=== PATIENT | female | born 1980 | race Caucasian/White ===

== ENCOUNTER 2023-04-12 16:25 | Emergency (ER) | payer BC, SELFPAY ==
[2023-04-12 16:31] VITALS: BP 153/95; PULSE 80; RESP 16; TEMP 36.7; O2SAT 98; BMI 34.9
--- NOTE | 2023-04-12 16:43 | XRR_ITS ---
PROCEDURE INFORMATION: Exam: XR Chest Exam date and time: 04/12/2023 4:57 PM Age: 42 years old Clinical indication: Pain; Chest pressure; Additional info: Chest pain TECHNIQUE: Imaging protocol: Radiologic exam of the chest. Views: 1 view. COMPARISON: No relevant prior studies available. FINDINGS: Lungs: Unremarkable. No consolidation. Pleural spaces: Unremarkable. No pleural effusion. No pneumothorax. Heart/Mediastinum: Unremarkable. No cardiomegaly. Bones/joints: Unremarkable. XR/XR chest 1V portable [id number] IMPRESSION: No acute findings.
--- NOTE | 2023-04-12 16:44 | ECG_ITS ---
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 Measurements Intervals [place] Rate: 72 P: 31 [place]: 170 QRS: 46 QRSD: 84 T: 40 QT: 368 QTc: 403 Interpretive Statements SINUS RHYTHM No previous ECG available for comparison Electronically Signed On 04-13-2023 7:36:41 CDT by Braulio Cross M.D. [email or web address].[employer]/store/NU/[id number] f
[2023-04-12 17:01] LABS: Basophils % 0.4 %; Eosinophils # 0.4 10^3/uL (0.0-0.8); Eosinophils % 4.9 %; Hematocrit 40.6 % (37.0-47.0); Hemoglobin 13.1 g/dL (11.5-15.3); Lymphocytes # 1.8 10^3/uL (0.8-4.8); Lymphocytes % 25.6 %; Mean Corpuscular HGB Conc 32.3 g/dL (30.0-36.0); Mean Corpuscular Hemoglobin 29.4 pg (28.0-34.0); Mean Platelet Volume 11.2 fL (7.4-10.4); Monocytes # 0.4 10^3/uL (0.2-0.9); Monocytes % 6.1 %; Neutrophils # 4.44 10^3/uL (1.8-7.7); Neutrophils % 62.7 %; Nucleated Red Blood Cells % 0 %; Platelet Count 197 10^3/cmm (130-400); Red Blood Count 4.46 10^6/uL (4.1-5.3); White Blood Count 7.1 10^3/uL (4.0-10.0)
[2023-04-12 17:14] LABS: INR 0.97 (0.8-1.2)
[2023-04-12 17:24] VITALS: BP 154/99; PULSE 77; RESP 18; O2SAT 99
--- NOTE | 2023-04-12 17:24 | PC.NURSE ---
Patient hooked up to continuous bedside cardiac monitoring.
[2023-04-12 17:25] LABS: Alanine Aminotransferase 35 U/L (0-33); Albumin Level 4.3 g/dL (3.5-5.2); Alkaline Phosphatase 93 U/L (35-105); Anion Gap 13.9 (5-19); Aspartate Amino Transferase 22 U/L (0-32); Blood Urea Nitrogen 8 mg/dL (6-20); Calcium 9.1 mg/dL (8.5-10.5); Carbon Dioxide 25 mmol/L (22-29); Chloride 105 mmol/L (98-107); Globulin 2.2 g/dL (1.3-4.6); Glomerular Filtration Rate 109.6 mL/min (90-130); Glucose 82 mg/dL (65-115); Osmolality Calculated 287 mOsm/kg (285-295); Potassium 3.9 mmol/L (3.5-5.1); Sodium 140 mmol/L (136-145); Total Bilirubin 0.3 mg/dL (0.15-1.2); Total Protein 6.5 g/dL (6.6-8.7)
[2023-04-12 17:26] LABS: Troponin(5th) Baseline 6 ng/L (0-10)
--- NOTE | 2023-04-12 17:59 | W.ED.CHESTPA ---
HPI - Chest Pain General: Chief Complaint: Chest Pain Stated Complaint: upper back pain Time Seen by Provider: 04/12/23 16:43 History of Present Illness: Presents to the ER with complaints of substernal chest pain off and on since Sunday and also left scapular pain intermittent. Patient's other complaint is that she just feels off in general feels like she has a head mallory additional go away. Patient does not have any cardiac history herself. Upon arrival patient's blood pressure mildly elevated 153/95. Patient states she is not having the chest pain right now per se but she is having the left scapular pain. Patient did figure out that moving in certain positions will make the pain go away. And pushing on her chest makes the pain worse. Review of Systems General: Reports: 10 or more systems reviewed and unremarkable except in HPI and below Physical Exam Const: COMMON NORMALS: no acute distress, average body habitus, patient oriented x3, no limitations, healthy appearing, alert and well nourished HENMT: COMMON NORMALS: normocephalic, atraumatic, hearing grossly normal bilaterally, external ears normal, Normal external nose present and moist oral mucous membranes HEAD & SCALP: normocephalic and atraumatic NOSE: Normal external nose present EXTERNAL EAR: Yes external ears normal Eye: COMMON NORMALS: Equal, round and reactive pupils present, EOMs intact bilaterally, conjunctivae normal and no scleral icterus CONJUNCTIVA: Yes conjunctivae normal PUPIL: Yes Equal, round and reactive pupils present Neck/C-Spine: COMMON NORMALS: full ROM, no lymphadenopathy, supple, no meningeal signs, no JVD and Thyroid normal THYROID: Thyroid normal Chest: COMMONS NORMALS: normal inspection of the chest and normal palpation of entire chest wall Resp: COMMON NORMALS: normal respiratory effort, No retractions, No use of accessory muscles and clear to auscultation bilaterally AUSCULTATION: clear to auscultation bilaterally Cardio: COMMON NORMALS: no JVD, regular rate, regular rhythm, S1 normal heart sound present, S2 normal heart sound present, No gallops present (Cardio), No clicks present (Cardio), No murmurs present (Cardio) and No rub (Cardio) RATE: regular rate RHYTHM: regular rhythm HEART SOUNDS: S1 normal heart sound present and S2 normal heart sound present GI: COMMON NORMALS: Normal to inspection, nondistended, normoactive bowel sounds present, Soft to palpation, non-tender, No hepatosplenomegaly present and no masses PALPATION: Yes Soft to palpation and Yes No hepatosplenomegaly present : COMMON NORMALS: Yes no CVA tenderness BLADDER/KIDNEY EXAM: Yes no CVA tenderness Back/Pelvis: COMMON NORMALS: no CVA tenderness Neuro: COMMON NORMALS: patient oriented x3 SENSORIUM/ORIENTATION: Yes alert MENINGEAL SIGNS: Yes no meningeal signs Course Vital Signs: Vital signs: Vital Signs Temperature 98.1 F 04/12/23 16:31 Pulse Rate 63 04/12/23 18:38 Respiratory Rate 18 04/12/23 18:38 Blood Pressure 146/89 04/12/23 18:38 Pulse Oximetry 99 04/12/23 18:38 Oxygen Delivery Me thod Room Air 04/12/23 18:38 MDM - Chest Pain Medical Decision Making Presents to the ER with intermittent back pain and chest pain over the last 2 days. Patient was worked up in a normal chest pain fashion. Along with physical exam serial EKGs and serial troponins all of which come back benign. Is felt that this is noncardiac in nature. Patient be discharged home to follow-up with her PCP in the next 7 to 10 days. Differential Diagnosis Unlikely acute massive pulmonary embolism, acute respiratory failure, acute myocardial infarction, cardiac arrest or sudden cardiac Medical Records I reviewed the patient's medical records. Lab Data I reviewed the patient's lab results. 04/12/23 16:54 04/12/23 16:54 Radiology Impressions Chest X-Ray 04/12/23 16:43 IMPRESSION: No acute findings. Laboratory Results WBC 7.1 10^3/uL (4.0-10.0) 04/12/23 16:54 RBC 4.46 10^6/uL (4.1-5.3) 04/12/23 16:54 Hgb 13.1 g/dL (11.5-15.3) 04/12/23 16:54 Hct 40.6 % (37.0-47.0) 04/12/23 16:54 MCV 91.0 fl (81-99) 04/12/23 16:54 MCH 29.4 pg (28.0-34.0) 04/12/23 16:54 MCHC 32.3 g/dL (30.0-36.0) 04/12/23 16:54 RDW 13.0 % (12.1-15.1) 04/12/23 16:54 Plt Count 197 10^3/cmm (130-400) 04/12/23 16:54 MPV 11.2 fL (7.4-10.4) H 04/12/23 16:54 Neut % (Auto) 62.7 % 04/12/23 16:54 Lymph % (Auto) 25.6 % 04/12/23 16:54 [place] % (Auto) 6.1 % 04/12/23 16:54 Eos % (Auto) 4.9 % 04/12/23 16:54 Baso % (Auto) 0.4 % 04/12/23 16:54 Neut # (Auto) 4.44 10^3/uL (1.8-7.7) 04/12/23 16:54 Lymph # (Auto) 1.8 10^3/uL (0.8-4.8) 04/12/23 16:54 [place] # (Auto) 0.4 10^3/uL (0.2-0.9) 04/12/23 16:54 Eos # (Auto) 0.4 10^3/uL (0.0-0.8) 04/12/23 16:54 Baso # (Auto) 0.0 10^3/uL (0.0-0.1) 04/12/23 16:54 Nucleated RBC % (auto) 0 % 04/12/23 16:54 Nucleated RBCs # 0.0 /100WBC 04/12/23 16:54 PT 13.20 SECONDS (12.1-14.9) 04/12/23 16:54 INR 0.97 (0.8-1.2) 04/12/23 16:54 Sodium 140 mmol/L (136-145) 04/12/23 16:54 Potassium 3.9 mmol/L (3.5-5.1) 04/12/23 16:54 Chloride 105 mmol/L (98-107) 04/12/23 16:54 Carbon Dioxide 25 mmol/L (22-29) 04/12/23 16:54 Anion Gap 13.9 (5-19) 04/12/23 16:54 BUN 8 mg/dL (6-20) 04/12/23 16:54 Creatinine 0.6 mg/dL (0.5-0.9) 04/12/23 16:54 GFR Calculation 109.6 mL/min (90-130) 04/12/23 16:54 Glucose 82 mg/dL (65-115) 04/12/23 16:54 Calculated Osmolality 287 mOsm/kg (285-295) 04/12/23 16:54 Calcium 9.1 mg/dL (8.5-10.5) 04/12/23 16:54 Total Bilirubin 0.3 mg/dL (0.15-1.2) 04/12/23 16:54 AST 22 U/L (0-32) 04/12/23 16:54 ALT 35 U/L (0-33) H 04/12/23 16:54 Alkaline Phosphatase 93 U/L (35-105) 04/12/23 16:54 Troponin T Baseline 6 ng/L (0-10) 04/12/23 16:54 Troponin T 120 Minute 6.00 ng/L (0-10) 04/12/23 19:12 Total Protein 6.5 g/dL (6.6-8.7) L 04/12/23 16:54 Albumin 4.3 g/dL (3.5-5.2) 04/12/23 16:54 Globulin 2.2 g/dL (1.3-4.6) 04/12/23 16:54 EKG Data EKG 1: I personally reviewed and interpreted this EKG as follows: EKG interpretation date: 04/12/23 EKG interpretation time: 16:40 Prior EKG tracings: not available for review Interpretation: EKG showed normal sinus rhythm with a ventricular rate of 72 bpm, MN interval 170, QRS duration 84, QTc of 392, no ST-T wave changes EKG 2: I personally reviewed and interpreted this EKG as follows: EKG interpretation date: 04/12/23 EKG interpretation time: 18:54 Prior EKG tracings: available for review Interpretation: EKG showed ventricular rate 65 bpm, MN interval 189, QRS duration 94, QTc of 391, sinus rhythm with no ST-T wave changes Discharge Plan Discharge Patient Disposition: Home Clinical Impression: Atypical chest pain Condition: Stable Prescriptions: No Action No Known Home Medications Discharge Orders: Discharge ED (Routine); Ordered 04/12/23 Ordered By: Kenyon Tracy Patient Instructions: Chest Pain - Noncardiac Activity Restrictions/Additional Instructions: All of your work-up was negative for cardiac type chest pain. This is felt to be noncardiac in nature. Please follow-up with your family practice doctor in the next 7 to 10 days or sooner as needed. Coding Level of Care Code ED Reproduction Machine Loader for Gaston Spencer
[2023-04-12 18:38] VITALS: BP 146/89; PULSE 63; RESP 18; O2SAT 99
--- NOTE | 2023-04-12 18:44 | ECG_ITS ---
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 Measurements Intervals [place] Rate: 65 P: 51 [place]: 189 QRS: 45 QRSD: 94 T: 35 QT: 380 QTc: 395 Interpretive Statements SINUS RHYTHM LOW QRS VOLTAGE IN PRECORDIAL LEADS [QRS DEFLECTION < 1.0 mV IN CHEST LEADS] No previous ECG available for comparison Electronically Signed On 04-12-2023 18:56:43 CDT by Braulio Cross M.D. [id number]
[2023-04-12 19:00] VITALS: BP 140/86; PULSE 60; O2SAT 97
[2023-04-12 20:00] VITALS: BP 134/99; PULSE 68; O2SAT 97
[2023-04-12 20:13] LABS: Troponin 5 2HR Delta 0 ABS# (0-10)
--- NOTE | 2023-04-13 11:50 | DCPLANNER ---
network account manager called patient due to no primary care physician - patient declines at this time, she stated that she would schedule an appointment with a provider.
== END 2023-04-12 20:36 | disposition home or self-care (01) ==
PROVIDERS: Emergency Provider Emergency Medicine
DX: R07.89 Other chest pain (principal)
CPT/HCPCS: 36415; 71045; 80053; 84484; 85025; 85610; 93005; 99285

== ENCOUNTER 2023-06-06 09:42 | Outpatient (CLI) | payer BC, SELFPAY ==
--- NOTE | 2023-06-06 | ECG_ITS ---
[facility] Test Date: 2023-06-06 Pat Name: Siena Beckwith Department: Room: Gender: Female Qa Analyst: Royal Pastor : 1980 Requested By: Braulio Cross Order Number: [id number] Courtney MD: Braulio Cross M.D. Interpretive Statements NAME OF STUDY: EXERCISE SESTAMIBI STRESS TEST INDICATION: [Chest Pain, ] EXERCISE DATA: The patient was exercised by Adonis protocol. Baseline heart rate was 68 beats per minute. Baseline blood pressure was 115/57 millimeters of mercury. Target heart rate was 150 beats per minute. Maximum heart rate achieved was 173 which was 115% of the target heart rate. Maximum blood pressure was 160/92 millimeters of mercury. Total exercise time was 7 minutes. Maximum METs achieved was 10.2. The reason for ending the test was maximal effort achieved. The patient complained of shortness of breath during the stress test, which then resolved at the end of the test. ELECTROCARDIOGRAM: BASELINE: Showed sinus rhythm, normal axis, no significant ST-T changes at the baseline noted. [] EXERCISE: At the peak exercise level, [] No significant ST-T changes suggestive of ischemia noted. [] RECOVERY: During the recovery period, heart rate dropped appropriately. No significant ST-T changes in the recovery suggestive of ischemia noted. [] CONCLUSION: 1. Exercise capacity is good 2. Heart rate response was appropriate. 3. Blood pressure response was appropriate 4. Symptoms not suggestive of ischemia. 5. Electrocardiogram portion of the stress test was not suggestive of ischemia. 6. Nuclear scan will be documented separately. Electronically Signed On 06-21-2023 12:04:56 CDT by Braulio Cross M.D. [id number]
--- NOTE | 2023-06-06 10:04 | NMCV_ITS ---
NM luisito perf SPECT r/s* [id number] Siena Beckwith Age: 43 Gender: F : 1980 Exam Date: 06/06/2023 10:40 Ordering Phys: Braulio Cross M.D ([email or web address]) Technologist: MICHELLE Fam Exam Location: [facility] Indications: CHEST PAIN STRESS TEST Please [facility] IMAGE PROTOCOL Rest/Stress 1 Exercise Day Radiopharmaceutical Dose (mCi) Administration Site Administered by Rest: Tc-99m 10.9 IV MICHELLE Fam Sestamibi Stress:Tc-99m 32.8 IV MICHELLE Solis Sestamibi Rest: 06-Jun-2023 60 Discovery 630 Stress: 06-Jun-2023 30 Discovery 630 Radiopharmaceutical was injected at 87 % maximum heart rate. Images obtained in supine and prone position. SPECT RESULTS Technical Quality: Excellent Raw Data Analysis: Normal Image Corrections: No attenuation or motion correction applied Summed Stress Score: 0 Summed Rest Score: 0 Summed Difference Score: 0 PERFUSION FINDINGS SPECT images demonstrate homogeneous tracer distribution throughout the myocardium. FUNCTIONAL RESULTS (calculated via Gated SPECT) Stress Image LV EF (%): 84 Stress EDV (mL):83 TID: 0.75 Stress ESV (mL):13 FUNCTIONAL FINDINGS: There is normal left ventricular systolic function. IMPRESSIONS 1. Normal myocardial perfusion imaging with no evidence of ischemia 2. LV systolic function is normal Braulio Cross MD (Electronically Signed) Final Date: 06 June 2023 12:34 S
[2023-06-06 10:06] VITALS: BMI 38.0
[2023-06-06 12:13] VITALS: BP 130/100; PULSE 84
== END 2023-06-06 09:43 | disposition home or self-care (01) ==
LOC: CDL 09:43
PROVIDERS: PCP Nurse Practitioner Family; Visit Provider Internal Medicine
DX: R07.9 Chest pain, unspecified (principal)
CPT/HCPCS: 36415; 78452; 93017; A9500

== ENCOUNTER 2023-06-27 12:02 | Outpatient (CLI) | payer BC, SELFPAY ==
--- NOTE | 2023-06-27 11:45 | USCV_ITS ---
Siena Beckwith Age: 43 Gender: F : 1980 Exam Date: 06/27/2023 12:13 Ordering Phys: Braulio Cross M.D ([email or web address]) Technologist: CT Exam Location: [facility] [place] Indication: sob BP: 112 / 78 HR: 66 Rhythm: Sinus Technical Quality: Adequate MEASUREMENTS (Male / Female) Normal Values 2D ECHO LV Chamber Size 4.5 cm RV Chamber Size 4.1 cm LVOT Diameter 2.0 cm LV Ejection Fraction MOD 2C 72.7 % LV Ejection Fraction 2C AL 71.0 % LA Diameter 3.7 cm LA Width 3.5 cm LA Height 5.9 cm RA Width 3.4 cm RA Height 5.0 cm Aorta at Sinotubular Diameter 2.4 cm IVC Diameter 1.7 cm M-MODE Aortic Annulus Diameter 3.2 cm LA Ao Ratio MM 1.3 MV E Point Septal Separation 0.6 cm DOPPLER AV Peak Velocity 151.0 cm/s LVOT Peak Velocity 83.0 cm/s AV Area Cont Eq vti 1.8 cm squared AV Area Cont Eq pk 1.8 cm squared MV E' Velocity 13.0 cm/s TR Peak Velocity 156.0 cm/s TR Peak Gradient 9.7 mmHg TV Peak E Velocity 84.0 cm/s Right Atrial Pressure 3.0 mmHg Pulmonary Artery Systolic Pressu 12.7 mmHg PV Peak Velocity 121.0 cm/s FINDINGS Left Ventricle Left ventricle is normal size. LV systolic function is normal with EF of 55 to 60%. No regional wall motion abnormalities are seen. Right Ventricle Normal in size and function Right Atrium Normal in size Left Atrium Normal in size Mitral Valve Structurally normal mitral valve. Trace mitral regurgitation. Aortic Valve Structurally normal aortic valve. No significant stenosis or regurgitation. Tricuspid Valve Mild tricuspid regurgitation. Insufficient TR jet to evaluate RVSP. Pulmonic Valve Not well visualized Pericardium Normal Aorta Normal in size IVC Appears to be normal CONCLUSIONS LV systolic function is normal with EF of 55 to 60%. No regional wall motion abnormalities are seen. Trace mitral regurgitation Mild tricuspid regurgitation No comparison studies are available Braulio Cross MD (Electronically Signed) Final Date: 30 June 2023 10:16 S
== END 2023-06-27 12:03 | disposition home or self-care (01) ==
LOC: RAD 12:03
PROVIDERS: PCP Nurse Practitioner Family; Visit Provider Internal Medicine
DX: R06.02 Shortness of breath (principal); I07.1 Rheumatic tricuspid insufficiency
CPT/HCPCS: 93306

== ENCOUNTER → 2023-10-26 09:49 | Outpatient (BNVA) | payer MEDICAID, SELFPAY | PROVIDERS: PCP Nurse Practitioner Family; Visit Provider Family Medicine | DX: M19.011 Primary osteoarthritis, right shoulder (principal); M25.511 Pain in right shoulder; G89.29 Other chronic pain | CPT/HCPCS: 73030 ==

== ENCOUNTER → 2024-04-24 09:58 | Outpatient (BNVA) | payer MEDICAID, SELFPAY | PROVIDERS: PCP Nurse Practitioner Family; Visit Provider Nurse Practitioner Family | DX: R07.9 Chest pain, unspecified (principal); R20.2 Paresthesia of skin; E66.9 Obesity, unspecified | CPT/HCPCS: 80053; 80061; 83036; 84443; 85025 ==

== ENCOUNTER 2024-07-28 09:44 | Emergency (ER) | payer MEDICAID, SELFPAY ==
--- NOTE | 2024-07-28 09:53 | W.ED.ALLEREA ---
HPI - Allergic Reaction General: Chief complaint: Allergic Reaction Stated complaint: allergic reaction Time Seen by Provider: 07/28/24 09:47 History of Present Illness: HPI narrative: 44-year-old female presents emergency room with onset of urticarial rash that began suddenly this morning. Briefly she felt like she was having a difficult time taking a deep breath he used albuterol inhaler once and that seems to have passed. She has a diffusely spread urticarial rash on the trunk upper extremities and proximal lower extremities. Knee extends beyond the extent of her closing. She did not have any hoarseness difficulty breathing or swallowing no facial swelling. Associated symptoms: Deny abdominal pain Related Data Previous Rx's Medication Instructions Recorded albuterol sulfate 90 mcg/actuation 2 puff inhalation 6XD PRN 04/24/24 aerosol inhaler (Ventolin HFA) shortness of breath or wheezing 30 days #8.5 grams mometasone 220 mcg/actuation(120 2 inh inhalation BID #1 ea 04/24/24 doses)breath activated powder inhaler (Asmanex Twisthaler) montelukast 10 mg tablet 10 mg PO DAILY 90 days #90 tabs 04/24/24 terbinafine HCl 250 mg tablet 250 mg PO DAILY 30 days #30 tabs 04/24/24 cetirizine 10 mg tablet 10 mg PO BID #60 tabs 07/28/24 methylprednisolone 4 mg tablets in See Rx Instructions PO .COMPLEX 07/28/24 a dose pack (Medrol (Christiano)) #21 ea Allergies Allergy/AdvReac Type Severity Reaction Status Date / Time No Known Allergies Allergy Verified 07/31/24 11:34 Review of Systems Const: Denies: fever(s) or chills Card: Denies: chest pain Resp: Denies: dyspnea GI: Denies: abdominal pain : Denies: dysuria, urinary frequency or urinary urgency Musc: Denies: neck pain or back pain Skin/Breast: Reports: rash (Urticarial rash) and pruritus PFSH ED PFSH: Social History Smoking and tobacco/nicotine status: tobacco/nicotine user, details unknown (marijuana) Physical Exam Const: COMMON NORMALS: no acute distress GENERAL APPEARANCE: cooperative and comfortable ORIENTATION/CONSCIOUSNESS: Yes awake, Yes oriented to person, Yes oriented to place and Yes oriented to time HENMT: COMMON NORMALS: normocephalic, atraumatic and hearing grossly normal bilaterally HEAD & SCALP: normocephalic and atraumatic Resp: COMMON NORMALS: normal respiratory effort, No retractions, No use of accessory muscles and clear to auscultation bilaterally AUSCULTATION: clear to auscultation bilaterally Cardio: COMMON NORMALS: regular rate, regular rhythm and No murmurs present (Cardio) RATE: regular rate RHYTHM: regular rhythm GI: COMMON NORMALS: Soft to palpation and No hepatosplenomegaly present AUSCULTATION: Yes normoactive bowel sounds PALPATION: Yes Soft to palpation, No Tenderness to palpation present (GI), No Guarding due to palpation present (GI) and Yes No hepatosplenomegaly present Extremity: COMMON NORMALS: normal to inspection, capillary refill normal, no clubbing, cyanosis or edema, no calf tenderness and no pedal edema Neuro: SENSORIUM/ORIENTATION: Yes oriented to person, Yes oriented to place and Yes oriented to time Skin: OTHER: Diffuse urticarial rash on the trunk upper extremities and proximal lower extremities no vesicles Course Vital Signs: Vital signs: Vital Signs Temperature 97.9 F 07/28/24 09:57 Pulse Rate 69 07/28/24 12:13 Respiratory Rate 18 07/28/24 09:57 Blood Pressure 119/69 07/28/24 12:13 Pulse Oximetry 94 07/28/24 12:13 Oxygen Delivery Me thod Room Air 07/28/24 10:51 MDM - Allergic Reaction Medical Decision Making Patient given steroids and antihistamines rashes began to resolve. No further respiratory issues than what she had described prior to arrival. Will discharge patient home steroid taper cetirizine 1 tablet twice daily albuterol as needed continue her montelukast. Follow-up with primary care if persist advised patient is likely this will wax and wane the next several days No radiology studies performed this visit Discharge Plan Discharge Patient Disposition: Home Clinical Impression: Allergic reaction, Urticaria Condition: Stable Prescriptions: New methylprednisolone [Medrol (Christiano)] 4 mg tablets,dose pack See Rx Instructions .ROUTE .COMPLEX Qty: 21 0RF Rx Instructions: orally per package directions cetirizine 10 mg tablet 10 mg PO BID Qty: 60 0RF No Action albuterol sulfate [Ventolin HFA] 90 mcg/actuation HFA aerosol inhaler 2 puff inhalation 6XD PRN (Reason: shortness of breath or wheezing) 30 Days Qty: 8.5 11RF Asmanex Twisthaler 220 mcg/ actuation (120) aerosol powdr breath activated 2 inh inhalation BID Qty: 1 11RF montelukast 10 mg tablet 10 mg PO DAILY 90 Days Qty: 90 1RF terbinafine HCl 250 mg tablet 250 mg PO DAILY 30 Days Qty: 30 2RF Discharge Orders: Discharge ED (Routine); Ordered 07/28/24 Ordered By: Skinny Rojas Referrals: Kelley Fuentes NP [Primary Care Provider] - Discharge Diet: Usual diet Discharge Activity: Increase activity as tolerated Patient Instructions: Urticaria (ED), Opioid Safety, Pain Management Activity Restrictions/Additional Instructions: Thank you for choosing [facility] for your healthcare needs today. It is very important that you follow up as instructed or that you return to the Emergency Department should you have concerns or if your condition changes or worsens in any way. Use Benadryl and cetirizine as needed to treat hives. Coding Level of Care Code ED Security Assurance Specialist for Gaston Spencer
[2024-07-28 09:57] VITALS: BP 120/96; PULSE 88; RESP 18; TEMP 36.6; O2SAT 96; BMI 36.5
[2024-07-28] MEDS: diphenhydrAMINE 50 mg/mL SDV 1mL IVP (10:18)
[2024-07-28] MEDS: methylPREDNISolone sod succ 125 mg/2 mL INJ IVP (10:29)
[2024-07-28 10:51] VITALS: BP 131/79; O2SAT 97
[2024-07-28 12:13] VITALS: BP 119/69; PULSE 69; O2SAT 94
== END 2024-07-28 12:14 | disposition home or self-care (01) ==
PROVIDERS: Emergency Provider Family Medicine; PCP Nurse Practitioner Family
DX: L50.0 Allergic urticaria (principal); Z72.0 Tobacco use
CPT/HCPCS: 96374; 96375; 99284; J1200; J2919

== ENCOUNTER → 2024-07-31 13:19 | Outpatient (BNVA) | payer MEDICAID, SELFPAY | PROVIDERS: PCP Nurse Practitioner Family; Visit Provider Nurse Practitioner Family | DX: T78.40XA Allergy, unspecified, initial encounter (principal) | CPT/HCPCS: 80053; 85025; 86003; 86008; 86618; 86666; 86757 ==

== ENCOUNTER → 2024-10-21 15:30 | Outpatient (BNVA) | payer OTHER, SELFPAY | PROVIDERS: PCP Nurse Practitioner Family; Visit Provider Podiatrist Foot & Ankle Surgery | DX: M79.671 Pain in right foot (principal); M79.672 Pain in left foot | CPT/HCPCS: 73630 ==

== ENCOUNTER → 2024-11-06 11:01 | Outpatient (BNVA) | payer OTHER, SELFPAY | PROVIDERS: PCP Nurse Practitioner Family; Visit Provider Clinical Nurse Specialist Adult Health | DX: K21.9 Gastro-esophageal reflux disease without esophagitis (principal); M19.90 Unspecified osteoarthritis, unspecified site; J45.41 Moderate persistent asthma with (acute) exacerbation; T78.40XA Allergy, unspecified, initial encounter; E66.9 Obesity, unspecified; X58.XXXA Exposure to other specified factors, initial encounter | CPT/HCPCS: 80053; 80061; 83036; 84443; 85007; 85027 ==

== ENCOUNTER 2024-11-14 15:14 | Outpatient (CLI) | payer OTHER, SELFPAY ==
--- NOTE | 2024-11-14 15:21 | XRR_ITS ---
PROCEDURE INFORMATION: Exam: XR Left Shoulder Exam date and time: 11/14/2024 3:37 PM Age: 44 years old Clinical indication: Pain; Shoulder; Left; Additional info: M25.512 - pain in left shoulder TECHNIQUE: Imaging protocol: Radiologic exam of the left shoulder. Views: 2 or more views. COMPARISON: CR XR chest 1V portable [id number] 04/12/2023 4:57 PM FINDINGS: Bones/joints: Normal. No fracture or dislocation. No acute osseous, joint, or soft tissue abnormality. Soft tissues: Normal. XR/XR shoulder LT min 2V* [id number] IMPRESSION: No acute findings.
== END 2024-11-14 15:15 | disposition home or self-care (01) ==
LOC: RAD 15:16
PROVIDERS: PCP Clinical Nurse Specialist Adult Health; Visit Provider Clinical Nurse Specialist Adult Health
DX: M25.512 Pain in left shoulder (principal); G89.29 Other chronic pain
CPT/HCPCS: 73030

== ENCOUNTER 2024-11-25 06:30 | Outpatient (RCR) | payer OTHER, SELFPAY | END 2024-12-24 23:59 | disposition home or self-care (01) | LOC: TPT 06:30 | PROVIDERS: PCP Clinical Nurse Specialist Adult Health; Visit Provider Clinical Nurse Specialist Adult Health | DX: M25.512 Pain in left shoulder (principal) | CPT/HCPCS: 97110 ==

== ENCOUNTER 2024-11-25 10:45 | Outpatient (CLI) | payer OTHER, SELFPAY ==
--- NOTE | 2024-11-25 10:45 | MM_ITS ---
WS: [id number] DIAGNOSTIC BILATERAL DIGITAL BREAST TOMOSYNTHESIS MAMMOGRAPHY WITH CAD RIGHT breast ultrasound, limited HISTORY: N60.01 - Solitary cyst of right breast, pain RIGHT upper outer quadrant. COMPARISON: 12/12/2022, ultrasound 12/12/2022 TECHNIQUE: Bilateral craniocaudad, mediolateral oblique, and mediolateral views are submitted with tomosynthesis and SM. Spot compression RIGHT CC. Computer aided detection utilized. Breast composition: The breasts are heterogeneously dense, which may obscure small masses. Heterogeneous fibroglandular pattern. No areas of architectural distortion or suspicious grouping of calcifications. No mass in the upper outer quadrant of the RIGHT breast in the area of pain. RIGHT breast ultrasound, limited. Simple cyst RIGHT breast at 9:00, 5 cm from the nipple measures 3 x 2 x 4 mm. Dense fibroglandular tissue in the upper outer quadrant. There is an additional ovoid multicystic mass measuring 10 x 5 x 8 mm at 11:00 2 cm from the nipple. No increased vascularity. This is probably a cluster of cysts/fibrocystic breast disease. No area of shadowing or mass. MM/MM diag BI tomosynthesis [id number] IMPRESSION: BI-RADS: 2 - Benign FOLLOW UP: 1 Year Follow-up No suspicious masses within either breast. Stable small cluster of cysts in the RIGHT breast at 11:00. Described at 12:00 on the prior ultrasound but appears to be the same mass.
--- NOTE | 2024-11-25 11:02 | US_ITS ---
WS: [id number] DIAGNOSTIC BILATERAL DIGITAL BREAST TOMOSYNTHESIS MAMMOGRAPHY WITH CAD RIGHT breast ultrasound, limited HISTORY: N60.01 - Solitary cyst of right breast, pain RIGHT upper outer quadrant. COMPARISON: 12/12/2022, ultrasound 12/12/2022 TECHNIQUE: Bilateral craniocaudad, mediolateral oblique, and mediolateral views are submitted with tomosynthesis and SM. Spot compression RIGHT CC. Computer aided detection utilized. Breast composition: The breasts are heterogeneously dense, which may obscure small masses. Heterogeneous fibroglandular pattern. No areas of architectural distortion or suspicious grouping of calcifications. No mass in the upper outer quadrant of the RIGHT breast in the area of pain. RIGHT breast ultrasound, limited. Simple cyst RIGHT breast at 9:00, 5 cm from the nipple measures 3 x 2 x 4 mm. Dense fibroglandular tissue in the upper outer quadrant. There is an additional ovoid multicystic mass measuring 10 x 5 x 8 mm at 11:00 2 cm from the nipple. No increased vascularity. This is probably a cluster of cysts/fibrocystic breast disease. No area of shadowing or mass. US/US breast RT limited* [id number] IMPRESSION: BI-RADS: 2 - Benign FOLLOW UP: 1 Year Follow-up No suspicious masses within either breast. Stable small cluster of cysts in the RIGHT breast at 11:00. Described at 12:00 on the prior ultrasound but appears to be the same mass.
== END 2024-11-25 10:46 | disposition home or self-care (01) ==
LOC: RAD 10:46
PROVIDERS: PCP Clinical Nurse Specialist Adult Health; Visit Provider Clinical Nurse Specialist Adult Health
DX: N60.01 Solitary cyst of right breast (principal); R92.333 Mammographic heterogeneous density, bilateral breasts; N63.11 Unspecified lump in the right breast, upper outer quadrant
CPT/HCPCS: 76642; 77062; G0279

== ENCOUNTER 2024-12-25 06:30 | Outpatient (RCR) | payer OTHER, SELFPAY | END 2024-12-30 12:38 | disposition home or self-care (01) | LOC: TPT 06:30 | PROVIDERS: PCP Clinical Nurse Specialist Adult Health; Visit Provider Clinical Nurse Specialist Adult Health | DX: M25.512 Pain in left shoulder (principal) | CPT/HCPCS: 97110 ==

== ENCOUNTER 2025-01-08 15:54 | Outpatient (CLI) | payer OTHER, SELFPAY ==
--- NOTE | 2025-01-08 16:00 | MR_ITS ---
WS: [id number] MRI RIGHT SHOULDER HISTORY: M25.511 - Pain in right shoulder, history of prior labral surgery x2. COMPARISON: Radiograph 10/26/2023 TECHNIQUE: Multiplanar sequences of the shoulder joint are submitted. Mild narrowing of the AC joint. Small amount of marrow edema in the acromion. Small amount of fluid in the subacromial bursa. 5 mm enthesopathy along the distal undersurface of the acromion contacting the distal myotendinous portion of the supraspinatus. There is contact and mild subacromial impingement. No os acromion. Biceps tendon within normal position. Lobulated cystic mass in the humeral head is most consistent with a subchondral cyst. Cyst measures 1.5 x 1.8 cm. Mild narrowing of the glenohumeral joint. There are subchondral cystic changes involving the glenoid and loss of cartilage. Smaller subchondral cyst at the rotator cuff attachment to the hu meral head. No rotator cuff muscle atrophy or edema. There is a very small bursal surface tear involving the distal supraspinatus directly superior to the humeral head. This is at the site of the subacromial impingement. The labrum appear to be intact. Very slight intermediate signal and change in contour of the labrum. This is probably due to labral repair. Most obvious changes are within the anterior and posterior labrum. MR/MR shoulder RT wo con* [id number] IMPRESSION: 1. Mild AC joint arthritis. 2. Mild subacromial impingement upon the myotendinous portion of the supraspin atus. 3. Bursal surface tear of the distal supraspinatus tendon at the level of the subacromial impingement. This is a small tear extending through less than 50% o f the tendon. 4. Intermediate signal with change in contour of the labrum, probably all post operative. No new tear identified. 5. Narrowing of the glenohumeral joint with subchondral cystic changes involvi ng the glenoid.
== END 2025-01-08 15:55 | disposition home or self-care (01) ==
PROVIDERS: PCP Clinical Nurse Specialist Adult Health; Visit Provider Clinical Nurse Specialist Adult Health
DX: M19.011 Primary osteoarthritis, right shoulder (principal); G89.29 Other chronic pain; M75.41 Impingement syndrome of right shoulder; M75.101 Unspecified rotator cuff tear or rupture of right shoulder, not specified as traumatic; R93.7 Abnormal findings on diagnostic imaging of other parts of musculoskeletal system; M89.38 Hypertrophy of bone, other site; M77.8 Other enthesopathies, not elsewhere classified
CPT/HCPCS: 73221

== ENCOUNTER → 2025-01-30 08:52 | Outpatient (BNVA) | payer OTHER, SELFPAY | PROVIDERS: PCP Clinical Nurse Specialist Adult Health; Visit Provider Nurse Practitioner | DX: M75.101 Unspecified rotator cuff tear or rupture of right shoulder, not specified as traumatic (principal); M75.41 Impingement syndrome of right shoulder; M19.012 Primary osteoarthritis, left shoulder | CPT/HCPCS: 73030 ==

== ENCOUNTER → 2025-02-11 09:50 | Outpatient (BNVA) | payer OTHER, SELFPAY | PROVIDERS: PCP Clinical Nurse Specialist Adult Health; Visit Provider Family Medicine | DX: Z01.818 Encounter for other preprocedural examination (principal) | CPT/HCPCS: 80053; 85025 ==

== ENCOUNTER 2025-02-17 10:57 | Day surgery (SDC) | payer OTHER, SELFPAY ==
[2025-02-17] VITALS (11 sets, daily range): BP systolic 123–163; BP diastolic 81–107; PULSE 66–79; RESP 14–18; TEMP 36.1–36.5; O2SAT 94–100; BMI 39.4
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
[2025-02-17] MEDS: sodium chloride 0.9% 1,000 ML 30 ML IV (12:01)
[2025-02-17] MEDS: gabapentin 300 mg Capsule PO (12:05)
[2025-02-17] MEDS: CELEcoxib 200 mg Capsule 400 MG PO (12:05)
[2025-02-17] MEDS: acetaminophen 1,000 MG/100 ML PIGGYBACK 400 MG IV (12:12)
--- NOTE | 2025-02-17 12:45 | P.HPUD_ITS ---
Surgery/Procedure H&P Update DATE OF PROCEDURE: February 17, 2025 DATE H&P PERFORMED: 01/30/25 H&P UPDATE INFORMATION: I have reviewed H&P completed within last 30 days, I have examined patient prior to procedure, No changes to prior documentation, H&P is in [facility] EMR on date indicated and Risks and benefits of the procedure reviewed PRIMARY INDICATION FOR PROCEDURE: MRI without contrast of the right shoulder was completed here at [facility] on January 08, 2025. Impression: 1. Mild AC joint arthritis. 2. Mild subacromial impingement upon the myotendinous portion of the supraspinatus. 3. Bursal surface tear at the distal supraspinatus tendon at the level of the subacromial impingement. This is a small tear extending through less than 50% of the tendon. 4. Intermediate signal with change in the contour of the labrum. Probably all postop. No new tear identified. 5. Narrowing of the glenohumeral joint with subacromial cystic change throughout the glenoid. PLANNED PROCEDURE: Operation Date: 02/17/25 12:30 Proposed Procedures p Distal Clavicle Resection(Right) - Sheila Foster MD s Acromioplasty Shoulder Acromioplasty(Right) - Sheila Foster MD s Rotator Cuff Repair - Open(Right) - Sheila Foster MD Related Problem List Diagnoses (1) Subacromial impingement of right shoulder: (2) Osteoarthritis of left acromioclavicular joint: (3) Tendinitis of left shoulder:
--- NOTE | 2025-02-17 13:55 | SUR.PREOP ---
13:45 RIGHT INTRASCALENE NERVE BLOCK PERFORMED BY DOCTOR VILLATORO, USING 20ml OF 0.5% ROPIVACAINE, WITH 4mg OF DECADRON. 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 PT TOLERATED PROCEDURE WELL.
--- NOTE | 2025-02-17 13:58 | ANES.PROC ---
Anesthesia Procedures Procedure/Date: 02/17/25 Nerve Block ^: Nerve Block 1: Main Anesthesia: general anesthesia Time Out Performed: Yes Consent: requested by attending/covering physician, from patient, from other and risks and benefits reviewed Nerve block location: interscalene (R) Anesthesia monitors applied: pulse oximetry, EKG and BP cuff Nerve block position: semi sitting Anesthetic Used: ropivicaine 0.5% (20 ml) and with decadron (4 mg) Ultrasound used to: recognize landmarks, visualize and ID brachial plexus, in supraclavicular region and visualize and ID interscalene groove Interscalene/Femoral BLK: 2 stimuplex 22 g needle used for position and inplane approach, visualize local anesthetic spread and no vascular puncture identified Injection: neg aspiration of heme Patient Tolerated Procedure: well Complications: none
[2025-02-17] MEDS: midazolam 1 mg/mL INJ 2 mL 2 MG IVP (14:02)
[2025-02-17] MEDS: ceFAZolin 2,000 mg SDV 2000 MG IVP (14:25)
[2025-02-17] MEDS: ceFAZolin 1,000 mg SDV 1000 MG IRRIGATION (15:12)
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
[2025-02-17] MEDS: ondansetron 2 mg/ML SDV 2 mL 4 MG IVP (16:43)
--- NOTE | 2025-02-17 17:22 | SUR.PHASEII ---
17:00 INDIRECT HEAT APPLIED. 17:10 MEDICATED FOR NAUSEA.
== END 2025-02-17 17:40 | disposition home or self-care (01) ==
PROVIDERS: PCP Clinical Nurse Specialist Adult Health; Visit Provider Specialist
PROC: (CPT 23120; principal; 2025-02-17 12:20)
PROC: (CPT 23130; 2025-02-17 12:20)
DX: M19.012 Primary osteoarthritis, left shoulder (principal); M75.42 Impingement syndrome of left shoulder; M75.52 Bursitis of left shoulder; M65.912 Unspecified synovitis and tenosynovitis, left shoulder; J45.909 Unspecified asthma, uncomplicated; K21.9 Gastro-esophageal reflux disease without esophagitis; E66.9 Obesity, unspecified; Z68.39 Body mass index [BMI] 39.0-39.9, adult; Q79.60 Ehlers-Danlos syndrome, unspecified
CPT/HCPCS: 23130; 23120; J0131; J0690; J1100; J2250; J2405; J2704; J2795; J3010; J3490; J7030; J9999

== ENCOUNTER → 2025-05-01 11:03 | Outpatient (BNVA) | payer OTHER, SELFPAY | PROVIDERS: PCP Clinical Nurse Specialist Adult Health; Visit Provider Nurse Practitioner | DX: M77.12 Lateral epicondylitis, left elbow (principal) | CPT/HCPCS: 73080 ==

== ENCOUNTER 2025-05-20 16:52 | Outpatient (CLI) | payer OTHER, SELFPAY ==
--- NOTE | 2025-05-20 17:00 | CT_ITS ---
WS: [id number] CT NECK TECHNIQUE: Contrast-enhanced CT of the neck with coronal and sagittal reformatted images. CLINICAL INFORMATION: M54.2 - Cervicalgia COMPARISON: None. DLP: 242.[address] scans at [facility] use at least one of these dose optimization techniques: automated exposure control; mA and/or kV adjustment per patient size (includes targeted exams where dose is matched to clinical indication); or iterative reconstruction. FINDINGS: Parotid glands are normal. Normal submandibular glands. No cervical lymphadenopathy. Thyroid gland is normal. Lung apices are well aerated. Paranasal sinuses and mastoid air cells are well aerated. Normal posterior nasopharynx. Normal parapharyngeal fat. No evidence of supraglottic or glottic mass. Normal subglottic airway. No cervical lymphadenopathy. Straightening of the normal cervical lordosis. Slightly low-lying cerebellar tonsils. No other suspicious findings. CT/CT neck w con* [id number] IMPRESSION: 1. Normal salivary glands. 2. No evidence of supraglottic or glottic mass. 3. No cervical lymphadenopathy.
[2025-05-20] MEDS: iohexol 350 mg/mL 500 mL Btl (per mL) IV (17:36)
== END 2025-05-20 16:53 | disposition home or self-care (01) ==
LOC: RAD 16:53
PROVIDERS: PCP Clinical Nurse Specialist Adult Health; Visit Provider Clinical Nurse Specialist Adult Health
DX: M54.2 Cervicalgia (principal)
CPT/HCPCS: 70491

== ENCOUNTER 2025-07-22 09:21 | Outpatient (CLI) | payer OTHER, SELFPAY ==
[2025-07-22] MEDS: iohexol 350 mg/mL 500 mL Btl (per mL) PO (10:43)
--- NOTE | 2025-07-22 17:15 | CTR_ITS ---
PROCEDURE INFORMATION: Exam: CT Abdomen And Pelvis Without Contrast Exam date and time: 07/22/2025 10:39 AM Age: 45 years old Clinical indication: Abdominal pain; Prior surgery; Surgery date: 6+ months; Surgery type: Hernia x 3, hyst, gb; Epigastric pain, with gerd x several weeks, bloating, diarrhea; Additional info: K57.32 - diverticulitis of large intestine without perfor. . . , Suspected diverticulitis TECHNIQUE: Imaging protocol: Computed tomography of the abdomen and pelvis without contrast. Radiation optimization: All CT scans at this facility use at least one of these dose optimization techniques: automated exposure control; mA and/or kV adjustment per patient size (includes targeted exams where dose is matched to clinical indication); or iterative reconstruction. COMPARISON: CR XR chest 1V portable [id number] 04/12/2023 4:57 PM RADIATION DOSE METRICS: Total DLP (mGy-cm): 957.43 FINDINGS: Liver: Normal. No mass. Gallbladder and biliary ducts: Post cholecystectomy changes are seen. Pancreas: Normal. No ductal dilation. Spleen: Normal. No splenomegaly. Adrenal glands: Normal. No mass. Kidneys and ureters: Normal. No hydronephrosis. Stomach and bowel: Sigmoid and descending colon diverticulosis. Small bowel intussusception in the left lower quadrant (4/41). No dilated proximal small bowel loop. Contrast seen passing distally to the cecal level. Appendix: Appendix is normal. Intraperitoneal space: Unremarkable. No free air. No significant fluid collection. Vasculature: Unremarkable. No abdominal aortic aneurysm. Lymph nodes: Unremarkable. No enlarged lymph nodes. Urinary bladder: Bladder wall measures 5 mm. Reproductive: Post hysterectomy changes are seen. Bones/joints: Mild lumbar spine degenerative changes. Soft tissues: prior right inguinal hernia repair changes. CT/CT abdomen pelvis wo con [id number] IMPRESSION: 1. Thickened bladder wall. Cystitis versus underlying mucosal lesion. Clinical correlation is advised. 2. Small bowel intussusception in the left lower quadrant (4/41). No dilated proximal small bowel loop. Imaging follow-up is advised. 3. Sigmoid and descending colon diverticulosis.
== END 2025-07-22 09:22 | disposition home or self-care (01) ==
PROVIDERS: PCP Clinical Nurse Specialist Adult Health; Visit Provider Clinical Nurse Specialist Adult Health
DX: K57.32 Diverticulitis of large intestine without perforation or abscess without bleeding (principal); R93.5 Abnormal findings on diagnostic imaging of other abdominal regions, including retroperitoneum; K56.1 Intussusception; Z90.49 Acquired absence of other specified parts of digestive tract
CPT/HCPCS: 74176

== ENCOUNTER 2025-07-22 19:14 | Emergency (ER) | payer OTHER, SELFPAY ==
--- OUTSIDE RECORDS SUMMARY | 2025-07-22 19:19 | XMS_ITS | Clinical Summary ---
Author Organization [facility] Address [address] [place] [id number] Care Team Providers Care Paste Up Copy Camera Operator Name Role Phone Unavailable Primary Care Provider Unavailabl e Social History Tobacco Use Types Packs/Day Years Used Date Smoking Tobacco: Never Assessed Comments Unknown Sex and Gender Information Value Date Recorded Sex Assigned at Not on file Legal Sex Female 11:23 AM CDT Gender Identity Not on file Sexual Orientation Not on file Plan of Treatment Health Maintenance Due Date Last Done Comments COLONOSCOPY 1980 CT Colonography 1980 Colorectal Cancer Screening 1980 FIT DNA 1980 FIT 1980 Hepatitis C Screening 1980 Mammogram 1980 SIGMOIDOSCOPY 1980 Anxiety Screening 1988 HIV Screening 1995 Depression Screening 1998 Hepatitis B Vaccine (1 of 3 - 19+ 3-dose series) 1999 Pneumococcal Vaccine 0-50 ye ars (1 of 2 - PCV) 1999 TDAP/DTaP/TD Vaccines (1 - Tdap) 1999 Pap Smear 2001 Cervical Cancer Screening (30-65) 2010 HPV/Cotest 2010 Lipid Panel 2020 COVID-19 Vaccine (1 - 2023-2 5 season) 2025 Influenza Series (#1) 2025 Meningococcal B Vaccine Aged Out No l onger eligible based on patient's age to complete this topic [place] [id number]
--- OUTSIDE RECORDS SUMMARY | 2025-07-22 19:19 | XMS_ITS | Encounter Summary ---
Author Organization [facility] Address [address] [place] [address] Care Team Providers Care Palliative Care Nurse Practitioner Name Role Phone Unavailable Primary Care Provider Unavailabl e Reason for Referral * EVAL & TREAT (Routine) - Authorized Specialty Diagnoses / Procedures Referred By Germaine castellanos Referred To Contact Allergy Diagnoses Moderate persistent asthma with (acute) exacerbation Allergy, unspecified, initial encounter Johnnie Doss APRN [address] [place] [address] Phone: tel: fax: [facility] [address] [place] [address] Phone: tel: Referral ID Status Reason Start Date Expiration Date Visits Requested Visits Authorized [id number] Authorized Specialty Services Required 11/10/2024 11/10/2025 1 1 Question Answer Additional details Allergy Clinic Encounter Details Date Type Department Care Team ([facility] st Contact Info) Description 11/10/2024 [place] [address] External Referring Provider, Not In System [address] [place] [address] Moderate persistent asthma with (acute) exacerbation (Primary Dx); Allergy, unspecified, initial encounter Social History Tobacco Use Types Packs/Day Years Used Date Smoking Tobacco: Never Assessed Comments Unknown Sex and Gender Information Value Date Recorded Sex Assigned at Not on file Legal Sex Female 11:23 AM CDT Gender Identity Not on file Sexual Orientation Not on file documented as of this encounter Plan of Treatment Scheduled Referrals Name Type Priority Associated Diagnoses Order Schedule Ambulatory Referral to Allergy / Immunology Outpatient Referral Routine Moderate persistent asthma with (acute) exacerbation Allergy, unspecified, initial encounter 1 Occurrences starting 11/10/2024 until 11/10/2025 documented as of this encounter Visit Diagnoses Diagnosis Moderate persistent asthma with (acute) exacerbation- Primary Allergy, unspecified, initial encounter documented in this encounter
--- OUTSIDE RECORDS SUMMARY | 2025-07-22 19:19 | XMS_ITS | Encounter Summary ---
Author Organization [facility] Address [address] [place] [address] Care Team Providers Care Ingredient Scaler Name Role Phone Unavailable Primary Care Provider Unavailabl e Reason for Referral * EVAL & TREAT (Routine) - Authorized Specialty Diagnoses / Procedures Referred By Germaine castellanos Referred To Contact Pulmonary Disease / Pulmonology Diagnoses Unspecified asthma with (acute) exacerbation Eosinophilia, unspecified Johnnie Doss APRN [address] [place] [address] Phone: tel: fax: [facility] [address] [place] [address] Phone: tel: fax: Referral ID Status Reason Start Date Expiration Date Visits Requested Visits Authorized [id number] Authorized Specialty Services Required 11/10/2024 11/10/2025 1 1 Encounter Details Date Type Department Care Team ([facility] st Contact Info) Description 11/10/2024 [place] [address] External Referring Provider, Not In System [address] [place] [address] Unspecified asthma with (acute) exacerbation (Primary Dx); Eosinophilia, unspecified Social History Tobacco Use Types Packs/Day Years [...] Associated Diagnoses Order Schedule Ambulatory Referral to Pulmonary Medicine Outpatient Referral Routine Unspecified asthma with (acute) exacerbation Eosinophilia, unspecified 1 Occurrences starting 11/10/2024 until 11/10/2025 documented as of this encounter Visit Diagnoses Diagnosis Unspecified asthma with (acute) exacerbation- Primary Eosinophilia, unspecified documented in this encounter
--- OUTSIDE RECORDS SUMMARY | 2025-07-22 19:19 | XMS_ITS | Clinical Summary ---
Author Organization [facility] Address [address] [place] [address] Phone Care Team Providers Care Spray Booth Operator Name Role Phone Unavailable Primary Care Provider Unavailabl e Social History Tobacco Use Types Packs/Day Years Used Date Smoking Tobacco: Never Assessed Comments Unknown Sex and Gender Information Value Date Recorded Sex Assigned at Not on file Legal Sex Female 9:18 AM CDT Gender Identity Not on file Sexual Orientation Not on file Plan of Treatment Health Maintenance Due Date Last Done Comments Colonoscopy Every 6 Months 1980 Colorectal Cancer Screening Annual FOBT/FIT Test 04/28 Colorectal Cancer Screening Cologuard 1980 Colorectal Cancer Screening Flex Sigmoidoscopy 980 Annual Depression Screening 1991 Annual Physical 1998 Hepatitis C Antibody Screen 1998 DTap/Tdap/Td Vaccines (1 - Tdap) 1999 Cervical Cancer Screening 2001 Mammogram 2020 Flu Vaccine (#1) 04/27/2025 Influenza Vaccine 04/27/2025 Colorectal CA Screen 10 Year Colonoscopy 2025 Colorectal Cancer Screening 2025 Insurance [facility] [id number]
[2025-07-22 19:27] VITALS: BP 146/100; PULSE 65; TEMP 36.8; O2SAT 99; BMI 38.0
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
[2025-07-22 20:10] LABS: HCG, Serum Qual Negative (Negative)
[2025-07-22 20:13] LABS: Alanine Aminotransferase 22 U/L (0-33); Albumin Level 4.1 g/dL (3.5-5.2); Alkaline Phosphatase 94 U/L (35-105); Anion Gap 16.8 (5-19); Aspartate Amino Transferase 17 U/L (0-32); Blood Urea Nitrogen 11 mg/dL (6-20); Calcium 8.8 mg/dL (8.5-10.5); Carbon Dioxide 21 mmol/L (22-29); Chloride 106 mmol/L (98-107); Globulin 2.6 g/dL (1.3-4.6); Glucose 94 mg/dL (65-115); Lipase 23 U/L (13-60); Osmolality Calculated 289 mOsm/kg (285-295); Potassium 3.8 mmol/L (3.5-5.1); Sodium 140 mmol/L (136-145); Total Protein 6.7 g/dL (6.6-8.7)
[2025-07-22 20:14] LABS: Hematocrit 39.7 % (36-47); Hemoglobin 12.70 g/dL (11.27-16.99); Mean Corpuscular HGB Conc 32.0 g/dL (30-55); Mean Corpuscular Hemoglobin 29.0 pg (27-33); Mean Corpuscular Volume 90.6 fl (85-98); Nucleated Red Blood Cells % 0 %; Platelet Count 189 10^3/cmm (157-399); Red Blood Count 4.38 10^6/uL (3.85-5.65); White Blood Count 8.36 10^3/uL (3.29-11.43)
[2025-07-22 20:23] VITALS: BP 129/105; O2SAT 97
[2025-07-22 20:23] LABS: Glucose Urine UA Negative (Normal); Nitrate Urine Negative (Negative); Specific Gravity, Urine 1.019 (1.005-1.030)
[2025-07-22 20:28] LABS: Add Urine Microscopic? YES
[2025-07-22 21:16] VITALS: BP 140/95; PULSE 70; RESP 17; O2SAT 95
== END 2025-07-22 21:17 | disposition home or self-care (01) ==
PROVIDERS: Emergency Medicine; Emergency Provider Physician Assistant; PCP Clinical Nurse Specialist Adult Health
DX: K56.1 Intussusception (principal); Z87.891 Personal history of nicotine dependence
CPT/HCPCS: 36415; 80053; 81001; 83690; 84703; 85025; 99283

== ENCOUNTER 2025-07-24 01:00 | Outpatient (RCR) | payer OTHER, SELFPAY | END 2025-07-26 23:59 | disposition home or self-care (01) | LOC: TPT 01:00 | PROVIDERS: PCP Clinical Nurse Specialist Adult Health; Visit Provider Nurse Practitioner | DX: M77.12 Lateral epicondylitis, left elbow (principal) | CPT/HCPCS: 97110; 97161 ==

== ENCOUNTER 2025-08-21 12:00 | Outpatient (RCR) | payer OTHER, SELFPAY | END 2025-08-24 08:05 | disposition home or self-care (01) | LOC: TPT 12:00 | PROVIDERS: PCP Clinical Nurse Specialist Adult Health; Visit Provider Nurse Practitioner | DX: M77.12 Lateral epicondylitis, left elbow (principal) | CPT/HCPCS: 97110 ==